=== PATIENT | female | born 2000 | race African-American/Black ===

== ENCOUNTER 2023-11-14 16:11 | Emergency (ER) | payer OTHER, SELFPAY ==
[2023-11-14 16:26] VITALS: BP 125/73; PULSE 83; RESP 16; TEMP 36.5; O2SAT 100
--- NOTE | 2023-11-14 16:45 | ED.SKABFB ---
HPI - Skin/Abscess/Foreign Bdy General Chief complaint: Skin/Abscess/Foreign Body Stated complaint: sore on lower lip Time Seen by Provider: 11/14/23 16:46 Source: patient and RN notes reviewed Mode of arrival: ambulatory Limitations: no limitations History of Present Illness HPI narrative: 23-year-old female presents concerns for cluster of blisters on her lower lip. She reports she noticed them yesterday. She reports they are not itchy or painful. She has not put anything on them. She denies any other rash. MD complaint: rash Related Data Allergies Allergy/AdvReac Type Severity Reaction Status Date / Time No Known Allergies Allergy Verified 11/14/23 16:50 Review of Systems Review of Systems: CONSTITUTIONAL: Denies malaise, chills, sweats, or fever. EYES: Denies redness, or discharge. ENT: Denies rhinorrhea, congestion, swollen lips, swollen tongue CARDIOVASCULAR: Denies chest pain, palpitations, or edema. RESPIRATORY: Denies cough or dyspnea. GASTROINTESTINAL: Denies abdominal pain, nausea, vomiting SKIN: Reports rash on her lower lip MUSCULOSKELETAL: Denies joint pain or myalgia. NEUROLOGIC: Denies headache. All systems reviewed & are unremarkable except as noted in HPI and below PMFSH Comments At time of signature, agree with nursing past medical, surgical, social and family history. There is no relevant family history pertinent to the presenting complaint Exam Narrative: GENERAL: Well-appearing, well-nourished, and in no acute distress. HEAD: Normocephalic, atraumatic. EYES: PERRLA, conjunctivae clear, and EOMI. ENT: Mucous membranes moist. Oropharynx without edema, erythema or lesions. NECK: Supple. No lymphadenopathy CHEST: Clear to auscultation. No respiratory distress. HEART: Regular rate and rhythm. SKIN: Warm, dry. Cluster of honey-colored crusted papules noted to the lower lip consistent with impetigo NEURO: Alert and oriented x3. PSYCH: Normal mood and affect Course Course Emergency Course: Patient is aware of diagnosis, understands and agrees to treatment plan. Anticipatory guidance given. Patient agrees to follow-up as directed and is aware of reasons to seek care at the emergency department. Portions of this record may have been created with voice recognition software Level of Care: Express Care Visit Vital Signs Vital signs: Vital Signs Oxygen Delivery Room Air 11/14/23 16:25 Temperature 97.7 F 11/14/23 16:26 Pulse Rate 83 11/14/23 16:26 Respiratory Rate 16 11/14/23 16:26 Blood Pressure 125/73 11/14/23 16:26 Pulse Oximetry 100 11/14/23 16:26 Oxygen Delivery Room Air 11/14/23 16:26 Reviewed. MDM - Skin/Abscess/Foreign Bdy MDM Narrative Medical decision making narrative: Does not appear at this time to be erythema multiforme, bullous, SJS, TEN; no evidence at this time to suggest RMSF, endocarditis or Lyme disease; patient looks well, nontoxic and is tolerating oral intake; no neurologic signs or symptoms; no headache, photophobia or neck pain; afebrile; appropriate for initial outpatient treatment; discussed the importance of follow-up, patient agrees; question, viral exanthema, contact dermatitis, allergic dermatitis, eczema, urticaria, impetigo, HSV. No soft palate or uvula edema, no tongue, lip edema or other mucosal involvement, no respiratory compromise, no stridor, no wheezing, no wheezing, no history of syncope, no hypotension, no nausea, vomiting, or diarrhea. Instructed patient to go to nearest ER immediately for any worsening symptoms including but not limited to: fever, spreading rash, pain, sore throat, headache, dizziness, chest pain, trouble breathing, or any symptoms concerning to the patient. Critical Care Time Critical Care Time Critical Care Time: No Discharge Plan Discharge Clinical Impression: Impetigo Patient Disposition: Home, Self-Care Condition: Stable Instructions: Impetigo (ED) Additional Instructions
== END 2023-11-14 16:55 | disposition home or self-care (01) ==
PROVIDERS: Emergency Provider Nurse Practitioner
DX: L01.00 Impetigo, unspecified (principal)
CPT/HCPCS: 99213; G0463

== ENCOUNTER 2024-08-31 07:17 | Emergency (ER) | payer OTHER, SELFPAY ==
[2024-08-31 07:25] VITALS: BP 135/83; PULSE 84; RESP 18; TEMP 36.8; O2SAT 98
[2024-08-31 07:43] VITALS: BP 132/89; PULSE 68; RESP 18; O2SAT 97
--- NOTE | 2024-08-31 08:01 | ED.GENADULT ---
HPI - General Adult General Chief complaint: Abdominal Pain Stated complaint: abd pain Time Seen by Provider: 08/31/24 07:24 History of Present Illness HPI narrative: 24-year-old female presented to the emergency department for evaluation for lower abdominal pressure. Patient reports symptoms started this morning. Patient had a bowel movement and this did not change any of her symptoms. Related Data Allergies Allergy/AdvReac Type Severity Reaction Status Date / Time No Known Allergies Allergy Verified 08/31/24 07:18 Review of Systems Review of Systems: All systems reviewed & are unremarkable except as noted in HPI and below Exam Narrative: APPEARANCE: Well appearing, no pain, no distress, well-nourished. HEAD: normocephalic, atraumatic. EYES: PERRLA/EOMI, conjunctivae clear. NOSE: Normal no drainage EARS:TMS clear with good light reflex. THROAT: Pharynx clear, no exudate. NECK: Supple. No adenopathy, no masses. RESPIRATORY: Airway patent, respirations nonlabored. Clear to auscultation bilaterally, no rales, rhonchi, wheezing. CARDIOVASCULAR: Regular rate and rhythm without murmurs rubs or gallops. ABDOMINAL: Soft, nontender, nondistended, normal bowel sounds MUSCULOSKELETAL: Moves all extremities. Strength/ROM intact, No edema, No calf tenderness. NEURO: Alert. Cranial nerves II through XII intact. Grossly SKIN: Warm, dry. Normal Color Course Vital Signs Vital signs: Vital Signs Temperature 98.3 F 08/31/24 07:25 Pulse Rate 84 08/31/24 07:25 Respiratory Rate 18 08/31/24 07:25 Blood Pressure 135/83 08/31/24 07:25 Pulse Oximetry 98 08/31/24 07:25 Oxygen Delivery Room Air 08/31/24 07:25 Temperature 98.3 F 08/31/24 07:25 Pulse Rate 68 08/31/24 07:43 Respiratory Rate 18 08/31/24 07:43 Blood Pressure 132/89 08/31/24 07:43 Pulse Oximetry 97 08/31/24 07:43 Oxygen Delivery Room Air 08/31/24 07:25 Medical Decision Making [facility] Narrative Medical decision making narrative: 24-year-old female presents emergency department for evaluation for lower abdominal pressure. Patient is afebrile with no leukocytosis hemoglobin of 13 no significant abnormalities on the CMP UA was suggestive of urinary tract infection. Patient was started on antibiotics in the emergency department. Patient was discharged home with Keflex. Differential Diagnosis Differential Diagnosis: UTI, ureteral calculi, colitis, diverticulitis Vital Signs Vital Signs: Vital Signs Temperature 98.3 F 08/31/24 07:25 Pulse Rate 84 08/31/24 07:25 Respiratory Rate 18 08/31/24 07:25 Blood Pressure 135/83 08/31/24 07:25 Pulse Oximetry 98 08/31/24 07:25 Oxygen Delivery Room Air 08/31/24 07:25 Temperature 98.3 F 08/31/24 07:25 Pulse Rate 68 08/31/24 07:43 Respiratory Rate 18 08/31/24 07:43 Blood Pressure 132/89 08/31/24 07:43 Pulse Oximetry 97 08/31/24 07:43 Oxygen Delivery Room Air 08/31/24 07:25 Lab Data Lab results reviewed: Yes I reviewed the patient's lab results. 08/31/24 08:21 08/31/24 08:21 Labs: Lab Results 08/31/24 08/31/24 Range/Units 08:21 08:40 WBC 4.1 L (4.5-10.0) K/mm3 RBC 5.04 (4.2-5.4) M/mm3 Hgb 13.0 (12.0-15.0) g/dL Hct 41.3 (37.0-47.0) % MCV 81.9 (80-100) fl MCH 25.8 L (26-34) pg MCHC 31.5 L (32-36) g/dl RDW 14.4 (11.5-14.5) % Plt Count 393 H (150-375) k/mm3 MPV 11.2 H (7.4-10.4) fl Immature Gran % (Auto) 0.0 (0-0.5) % Neut % (Auto) 59.1 (45.5-73.1) % Lymph % (Auto) 28.4 (18.3-44.2) % [place] % (Auto) 9.3 H (2.6-8.5) % Eos % (Auto) 2.0 (0-4.4) % Baso % (Auto) 1.2 (0.2-1.2) % Lymph # (Auto) 1.16 (0.9-3.2) K/mm3 [place] # (Auto) 0.4 (0.1-0.6) K/mm3 Eos # (Auto) 0.1 (0-0.3) K/mm3 Baso # (Auto) 0.1 (0.0-0.1) K/mm3 Abs Immat Gran (auto) 0.00 (0.00-0.031) K/mm3 Absolute Neuts (auto) 2.4 (1.3-6.7) K/mm3 Absolute Nucleated RBC 0.000 (0.0-0.012) K/mm3 Nucleated RBC % 0.0 (0.0-0.2) % Sodium 140 (137-145) mmol/L Potassium 3.7 (3.4-5.0) mmol/L Chloride 110 H (98-107) mmol/L Carbon Dioxide 23 (22-30) mmol/L Anion Gap 7 (4-12) mmol/L BUN 6 L (7-17) mg/dL Creatinine 0.70 (0.7-1.0) mg/dL Estim Creat Clear Calc 112 ml/min Estimated GFR > 60 (59 - ) Glucose 94 (65-110) mg/dL Calcium 9.3 (8.4-10.2) mg/dL Total Bilirubin 0.6 (0.2-1.3) mg/dL AST 22 (14-36) U/L ALT 26 (6-35) U/L Alkaline Phosphatase 56 (38-126) U/L Total Protein 8.0 (6.3-8.2) g/dL Albumin 4.4 (3.5-5.1) g/dL Lipase 46 (23-300) U/L Urine Color Dark yellow (Yellow) Urine Appearance Cloudy H (Clear) Urine pH 5.0 (5.0-9.0) Ur Specific [place] 1.033 (1.001-1.035) Urine Protein Trace (Negative) mg/dL Urine Glucose (UA) Negative (Negative) mg/dL Urine Ketones Trace H (Negative) mg/dL Ur Blood (Man) Negative (Negative) Urine Nitrate Negative (Negative) Urine Bilirubin Negative (Negative) Urine Urobilinogen 1.0 (<2.0) mg/dL Add Ur Microanalysis Reviewed Leukocyte Esterase Rfl Negative (Negative) [place]/UL Urine RBC 3-5 H (0-2) /hpf Urine WBC 6-10 H (0-3) /hpf Ur Squamous Epith Cells Many H (Few) /hpf Urine Bacteria 3+ H /hpf Urine Casts 3-5 POC Urine HCG, Qual Negative (Negative) Discharge Plan Discharge Clinical Impression: Abdominal cramping, UTI (urinary tract infection) Patient Disposition: Home, Self-Care Condition: Stable Instructions: Antibiotic Form, Urinary Tract Infection in Women (DC), Abdominal Pain (ED) Additional Instructions: Antibiotic as directed until completed for the urinary tract infection. Have close follow-up with your primary care physician. If you have any worsening symptoms then please call or return to the emergency department. Prescriptions: New cephalexin 500 mg capsule 500 mg PO Q8H 7 Days Qty: 21 0RF phenazopyridine [Pyridium] 100 mg tablet 100 mg PO TID PRN (Reason: pain) Qty: 6 0RF No Action mupirocin 2 % ointment 1 applic topical BID 7 Days Qty: 22 0RF Follow-up/Referrals: UNKNOWN,DOCTOR [Primary Care Provider] - Stand Alone Forms: Work/School Release IP
[2024-08-31] MEDS: HYDROmorphone HCL INJ (*CRX) 1 MG/ML SYR 0.5 MG IV PUSH (08:22)
[2024-08-31] MEDS: ONDANSETRON INJ 4 MG/2 ML VIAL IV PUSH (08:22)
[2024-08-31 08:37] LABS: Basophils Absolute Auto 0.1 K/mm3 (0.0-0.1); Basophils Percent Auto 1.2 % (0.2-1.2); Eosinophils Absolute Auto 0.1 K/mm3 (0-0.3); Hematocrit 41.3 % (37.0-47.0); Lymphocytes Absolute Auto 1.16 K/mm3 (0.9-3.2); Lymphocytes Percent Auto 28.4 % (18.3-44.2); Mean Corpuscular HGB Conc 31.5 g/dl (32-36); Mean Corpuscular Hemoglobin 25.8 pg (26-34); Mean Corpuscular Volume 81.9 fl (80-100); Mean Platelet Volume 11.2 fl (7.4-10.4); Monocytes Absolute Auto 0.4 K/mm3 (0.1-0.6); Monocytes Percent Auto 9.3 % (2.6-8.5); Neutrophils Absolute Auto 2.4 K/mm3 (1.3-6.7); Neutrophils Percent Auto 59.1 % (45.5-73.1); Platelet Count Result 393 k/mm3 (150-375); Red Blood Count 5.04 M/mm3 (4.2-5.4); Red Cell Distribution Width 14.4 % (11.5-14.5); White Blood Count 4.1 K/mm3 (4.5-10.0)
[2024-08-31 08:44] LABS: BEDSIDEPREGUCG Negative (Negative)
[2024-08-31 08:50] LABS: Add Urine Microscopic? YES; Appearance Urine Cloudy (Clear); Bacteria Urine 3+ /hpf; Bilirubin Urine Negative (Negative); Blood Urine Negative (Negative); Color Urine Dark Yellow (Yellow); Glucose Urine UA Negative (Negative); Ketones Urine Trace mg/dL (Negative); Leukocyte Esterase Ur Negative LEU/UL (Negative); Need Manual Microscopic Reviewed; Nitrate Urine Negative (Negative); Protein Urine Trace mg/dL (Negative); Specific Grav Ur 1.033 (1.001-1.035); Squamous Epithelial Cell Urine Many /hpf (Few)
[2024-08-31 08:52] LABS: Alanine Aminotransferase 26 U/L (6-35); Albumin Level 4.4 g/dL (3.5-5.1); Alkaline Phosphatase 56 U/L (38-126); Anion Gap 7 mmol/L (4-12); Aspartate Amino Transferase 22 U/L (14-36); Bilirubin,Total 0.6 mg/dL (0.2-1.3); Blood Urea Nitrogen 6 mg/dL (7-17); Calcium 9.3 mg/dL (8.4-10.2); Carbon Dioxide 23 mmol/L (22-30); Chloride 110 mmol/L (98-107); Estimated CRCL calculation 112 ml/min; Estimated Glomerular Filt Rate > 60; Glucose 94 mg/dL (65-110); Lipase 46 U/L (23-300); Potassium 3.7 mmol/L (3.4-5.0); Sodium 140 mmol/L (137-145)
== END 2024-08-31 10:20 | disposition home or self-care (01) ==
PROVIDERS: Emergency Provider Emergency Medicine
DX: N39.0 Urinary tract infection, site not specified (principal)
CPT/HCPCS: 36415; 80053; 81001; 81025; 83690; 85025; 87086; 96365; 96375; 99284; J0696; J1171; J2405

== ENCOUNTER 2025-04-07 19:13 | Emergency (ER) | payer SELFPAY ==
--- OUTSIDE RECORDS SUMMARY | 2025-04-07 19:14 | XMS_ITS | Clinical Summary ---
Author Organization [facility] Address [address] [place] [id number] Care Team Providers Care Commutator Inspector Name Role Phone Gianna Cruz [facility] Primary Care Provider Unav ailable Allergies No known active allergies Medications ondansetron (ZOFRAN-ODT) 4 MG disintegrating tablet Take 1 tablet (4 mg total) by mouth every 8 (eight) hours as needed. 20 tablet 5 Active Active Problems Problem Noted Date Diagnosed Date Intrinsic eczema 07/14/2019 Immunizations Immunization Administration Dates Next Due Fluzone 6 Months+ Quad (0.5 mL Prefilled Syringe ) 07/14/2019 HPV GARDASIL 9-VALENT 07/14/2019 Hepatitis A (Havrix 1440 El.U) 07/14/2019 Family History Relation Status Comments Father Alive Maternal Grandfather Alive Maternal Grandmother Alive Mother Alive Sister Alive Social History Tobacco Use Types Packs/Day Years Used Date Smoking Tobacco: Every Day Smokeless Tobacco: Never Tobacco Cessation:Ready to Q uit: Not Asked; Counseling Given: Not Answered Alcohol Use Standard Drinks/Week Comments Yes 0 (1 standard drink = 0.6 oz pur e alcohol) socially AUDIT-C Answer Date Recorded Frequency of Alcohol Consumption Never 07/14/2019 Average Number of Drinks Not on file 019 Frequency of Binge Drinking Not on file 06/28 Comments No Sex and Gender Information Value Date Recorded Sex Assigned at Not on file Legal Sex Female 12:38 PM CDT Gender Identity Not on file Sexual Orientation Not on file Last Filed Vital Signs Vital Sign Reading Time Taken Comments Blood Pressure 132/80 10/06/2024 11:44 AM CLINICAL AUDITOR Pulse 74 10/06/2024 11:44 AM CLINICAL AUDITOR Temperature 36.4 C (97.6 F) 10/06/2024 9:39 AM CLINICAL AUDITOR Respiratory Rate 16 10/06/2024 11:44 AM CLINICAL AUDITOR Oxygen Saturation 99% 10/06/2024 11:44 AM CLINICAL AUDITOR Inhaled Oxygen Concentration - - Weight 95.8 kg (211 lb 3.2 oz) 10/06/2024 9:40 A M CLINICAL AUDITOR Height 160 cm (5' 3) 10/06/2024 9:39 AM CLINICAL AUDITOR Body Mass Index 37.41 10/06/2024 9:39 AM CLINICAL AUDITOR Plan of Treatment Health Maintenance Due Date Last Done Comments Hepatitis B Vaccines (3 of 3 - 3-dose series) 04/27/2002 03/02/2002, 2001 Meningococcal B Vaccine (1 o f 2 - Standard) 2017 Hepatitis C 2019 HPV Vaccines (3 - 3-dose series) 10/06/2019 07/14/2019, 01/21/2018 DTaP, Tdap and Td Vaccines ( 3 - Tdap) 2020 09/09/2002, 03/02/2002 Pneumococcal Vaccine: Pediatrics (0 to 5 Years) and At-Risk Patients (6 to 49 Years) (1 of 2 - PCV) 2020 09/09/2002, 03/02/2002, 2001 Annual Physical 07/14/2020 07/14/2019 COVID-19 Vaccine (1 - 2023-2 5 season) 2024 Cervical Cancer Screening Pa p Smear (Age 21 to 29) Every 3 Years 06/20/2025 06/20/2022 Cervical Cancer Screening 06/20/2025 Meningococcal Vaccine Aged Out 01/21/2018 No maddison felisa eligible based on patient's age to complete this topic RSV Immunizations Under 20 Months Aged Out No longer eligible b ased on patient's age to complete this topic Care Teams Commutator Inspector Relationship Specialty Start Date End Date Gianna Cruz FNP-BC PCP - General NURSE PRACTITIONER 07/13/19
[2025-04-07 19:33] VITALS: BP 121/89; PULSE 72; RESP 16; TEMP 36.4; O2SAT 100
--- NOTE | 2025-04-07 21:36 | PC.NURSE ---
Pt presents to ED c/o 05/07 headache, onset 4pm. Pt states she took ibuprofen at 5pm with no relief.
--- OUTSIDE RECORDS SUMMARY | 2025-04-07 23:07 | XMS_ITS | Clinical Summary ---
Author Organization [facility] Address [address] [place] [id number] Care Team Providers Care Licensing Services Clerk Name Role Phone Gianna Cruz [facility] Primary Care Provider Unav ailable Allergies No [...] Comments Blood Pressure 132/80 10/06/2024 11:44 AM BEEF CATTLE FARMER Pulse 74 10/06/2024 11:44 AM BEEF CATTLE FARMER Temperature 36.4 C (97.6 F) 10/06/2024 9:39 AM BEEF CATTLE FARMER Respiratory Rate 16 10/06/2024 11:44 AM BEEF CATTLE FARMER Oxygen Saturation 99% 10/06/2024 11:44 AM BEEF CATTLE FARMER Inhaled Oxygen Concentration - - Weight 95.8 kg (211 lb 3.2 oz) 10/06/2024 9:40 A M BEEF CATTLE FARMER Height 160 cm (5' 3) 10/06/2024 9:39 AM BEEF CATTLE FARMER Body Mass Index 37.41 10/06/2024 9:39 AM BEEF CATTLE FARMER Plan of Treatment Health Maintenance Due Date [...] age to complete this topic Care Teams Licensing Services Clerk Relationship Specialty Start Date End Date Gianna Cruz FNP-BC PCP - General NURSE PRACTITIONER 07/13/19
--- NOTE | 2025-04-07 23:18 | ED.GENADULT ---
HPI - General Adult General Chief complaint: Headache Stated complaint: headache Time Seen by Provider: 04/07/25 23:00 History of Present Illness HPI narrative: Patient is a 34-year-old female who presents to the emergency department this evening complaining of a right-sided migraine headache that wraps around the crown of her head since about 4:00 p.m. this evening. Denies any recent illness, any fevers or chills, any head injury or trauma. No additional symptoms or concerns at this time. Related Data Allergies Allergy/AdvReac Type Severity Reaction Status Date / Time No Known Allergies Allergy Verified 08/31/24 07:18 Review of Systems Review of Systems: All systems are reviewed and are negative unless stated otherwise in the HPI. Exam Narrative: General: Alert, awake, afebrile, in no acute distress. HEENT: PERRL, no rhinorrhea, no post nasal drip, oropharynx clear, photophobia. Neck: Trachea midline, no JVD, no lymphadenopathy. Cardiovascular: Regular rate and rhythm, no murmurs, rubs or gallops, no peripheral edema. Respiratory: Clear to auscultation bilaterally, no tachypnea, no wheezing, no rhonchi, no rubs, no respiratory distress. Abdomen: Soft, nontender, nondistended, no rebound, no guarding, no peritoneal signs. Musculoskeletal: No joint swelling or deformity, normal muscle tone. Skin: No rashes or petechia, no signs of infection. Psychiatric: Alert and oriented, normal behavior and judgment for situation. Neurological: Alert and oriented to person, place, and time. Follows all commands. No focal deficits, speech is clear and fluent. Course Vital Signs Vital signs: Vital Signs Temperature 97.5 F L 04/07/25 19:33 Pulse Rate 72 04/07/25 19:33 Respiratory Rate 16 04/07/25 19:33 Blood Pressure 121/89 04/07/25 19:33 Pulse Oximetry 100 04/07/25 19:33 Oxygen Delivery Room Air 04/07/25 19:33 Temperature 97.5 F L 04/07/25 19:33 Pulse Rate 63 04/07/25 23:51 Respiratory Rate 18 04/07/25 23:51 Blood Pressure 122/77 04/07/25 23:51 Pulse Oximetry 99 04/07/25 23:51 Oxygen Delivery Room Air 04/07/25 19:33 Medical Decision Making MDM Narrative Medical decision making narrative: The patient was evaluated by myself in the emergency department. History is obtained from patient who is an independent historian and physical exam was performed. External medical records were reviewed at this time. IV was established and pertinent tests were ordered. Patient was administered 1 L IV fluid bolus with normal saline, 15 mg of IV Toradol, 10 mg IV Reglan and 25 mg of IV Benadryl. Differential diagnosis considerations include migraine versus tension headache, dehydration, acute viral syndrome. Comorbidities impacting this visit include none. I have evaluated and discussed social determinants of health with the patient that could potentially impact subsequent diagnosis and treatment plans. On repeat assessment of the patient, reevaluation revealed that the patient is doing well and is in no acute distress. Patient symptoms have improved since she arrived to our emergency department. Patient's headache has significantly improved. Repeat vital signs were all reviewed and noted to be stable. Differential diagnosis and treatment plan were discussed with the patient at bedside. Patient agrees with discussion and after shared medical decision making agrees with discharge. All questions were answered to the patient's satisfaction. Patient will follow up with her PCP in 3-5 days. Patient was provided with strict return precautions and instructed to return to the emergency department if any new or worsening symptoms develop. The patient was discharged in stable condition. Vital Signs Vital Signs: Vital Signs Temperature 97.5 F L 04/07/25 19:33 Pulse Rate 72 04/07/25 19:33 Respiratory Rate 16 04/07/25 19:33 Blood Pressure 121/89 04/07/25 19:33 Pulse Oximetry 100 04/07/25 19:33 Oxygen Delivery Room Air 04/07/25 19:33 Temperature 97.5 F L 04/07/25 19:33 Pulse Rate 63 04/07/25 23:51 Respiratory Rate 18 04/07/25 23:51 Blood Pressure 122/77 04/07/25 23:51 Pulse Oximetry 99 04/07/25 23:51 Oxygen Delivery Room Air 04/07/25 19:33 Lab Data Labs: Lab Results 04/07/25 Range/Units 23:33 POC Urine HCG, Qual Negative (Negative) Discharge Plan Discharge Clinical Impression: Migraine Patient Disposition: Home Condition: Improved Instructions: Antibiotic Form, Acute Headache (ED) Additional Instructions: Please follow-up with your family doctor within the next 3-5 days. Return to emergency department if any new or worsening symptoms develop. You may use the prescribed muscle relaxer as needed at his stay help with your headache. Patient Language: Amharic Prescriptions: New methocarbamol 750 mg tablet 750 mg PO HS Qty: 10 0RF No Action mupirocin 2 % ointment 1 applic topical BID 7 Days Qty: 22 0RF cephalexin 500 mg capsule 500 mg PO Q8H 7 Days Qty: 21 0RF phenazopyridine [Pyridium] 100 mg tablet 100 mg PO TID PRN (Reason: pain) Qty: 6 0RF Follow-up/Referrals: Lee Flynn MD [Physician] - 3 Days UNKNOWN,DOCTOR [Primary Care Provider] - Time of Disposition: 00:34
[2025-04-07 23:35] LABS: BEDSIDEPREGUCG Negative (Negative)
[2025-04-07] MEDS: SODIUM CHLORIDE 0.9% IV 1,000 ML 999 ML IV CONT (23:35)
[2025-04-07] MEDS: KETOROLAC 15 MG/ML VIAL (*BKC) IV PUSH (23:36)
[2025-04-07] MEDS: METOCLOPRAMIDE HCL INJ 10 MG/2 ML VIAL IV PUSH (23:47)
[2025-04-07 23:51] VITALS: BP 122/77; PULSE 63; RESP 18; O2SAT 99
--- NOTE | 2025-04-08 01:07 | PC.NURSE ---
Patient still pretty sleepy from medications. Asleep anytime this RN enters the room. Does not have a ride home. Per MD, patient to sleep it off for a bit prior to discharge. Pt remains on continuous monitor. Call light in reach. Pt agreeable to plan.
[2025-04-08 02:14] VITALS: BP 103/66; PULSE 65; RESP 18; O2SAT 100
--- NOTE | 2025-04-08 02:59 | PC.NURSE ---
Patient easier to wake and states she is comfortable driving home at this time. Pt remaining awake for discharge teaching.
[2025-04-08 03:00] VITALS: BP 104/66; PULSE 61; RESP 18; O2SAT 100
== END 2025-04-08 03:01 | disposition home or self-care (01) ==
PROVIDERS: Emergency Provider Emergency Medicine
DX: G43.909 Migraine, unspecified, not intractable, without status migrainosus (principal)
CPT/HCPCS: 81025; 96361; 96374; 96375; 99284; J1200; J1885; J2765; J7030

== ENCOUNTER 2025-06-30 20:39 | Emergency (ER) | payer SELFPAY ==
[2025-06-30 20:42] VITALS: BP 103/49; PULSE 86; RESP 18; TEMP 36.4; O2SAT 97
[2025-06-30] MEDS: MORPHINE SULFATE INJ (*CRX) 10 MG/ML AMP IM (21:02)
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
[2025-06-30] MEDS: LIDOCAINE/PRILOCAINE CREAM 2.5-2.5% TUBE 1 EACH TOPICAL (21:34)
[2025-06-30] MEDS: Please enter patient height and weight for medication dosing 1 EACH XX (21:34)
[2025-06-30] MEDS: TETANUS,DIPHTHERIA,AC PERTUSSIS ADULT (0.5 ML) BOOSTRIX IM (21:34)
[2025-06-30] MEDS: HYDROcodone/acetaminophen (*CRX) 5-325 MG TABLET 1 TAB PO (22:38)
[2025-06-30] MEDS: IBUPROFEN 400 MG TABLET 800 MG PO (22:39)
[2025-06-30 23:18] VITALS: BP 119/74; PULSE 67; RESP 18; O2SAT 99
== END 2025-06-30 23:19 | disposition home or self-care (01) ==
PROVIDERS: Emergency Provider Registered Nurse
DX: T25.231A Burn of second degree of right toe(s) (nail), initial encounter (principal); T31.0 Burns involving less than 10% of body surface; Z23 Encounter for immunization; X12.XXXA Contact with other hot fluids, initial encounter
CPT/HCPCS: 90471; 90715; 96372; 99283; A9270; J2270

== ENCOUNTER 2025-07-03 08:42 | Emergency (ER) | payer SELFPAY ==
[2025-07-03 08:51] VITALS: BP 117/88; PULSE 96; RESP 18; TEMP 37.2; O2SAT 98
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
== END 2025-07-03 09:26 | disposition home or self-care (01) ==
PROVIDERS: Emergency Provider Nurse Practitioner
DX: T25.221D Burn of second degree of right foot, subsequent encounter (principal); X08.8XXD Exposure to other specified smoke, fire and flames, subsequent encounter
CPT/HCPCS: 99212; G0463